=== PATIENT | male | born 1960 | race Caucasian/White ===

== ENCOUNTER 2017-09-11 14:50 | Emergency (ER) | payer OTHER ==
[~2017-09-11] VITALS: Ht 187.9 cm; Wt 107.5 kg
[~2017-09-11 14:50] MED LIST: ALLEGRA180 MG PO; ASPIRIN ADULT L81 M1 PO; AUGMENTIN 875 M1 TA1 PO; CLEOCIN150 MG PO; DAYPRO600 M1 PO; HYDROCODONE BIT1 T11 PO; MEDROL DOSEPAK4 MG PO; METFORMIN1000 MG PO; METFORMIN500 MG PO; MULTIVITAMIN1 CTB PO; PEPCID20 MG PO; Peridex 473 ML473 ML PO; SKELAXIN800 MG PO; TENORMIN25 M1 PO; TENORMIN25 MG PO; VICODIN 5/500 505 MG PO; ZOFRAN ODT4 MG SL; [UNRECOGNIZED DRUG - OTHER] PO; [UNRECOGNIZED DRUG - REMARK]
[2017-09-11 15:33] LABS: BASO % 0.4 % (0.0-1.0); EOS # 0.4 10*3/uL (0.0-0.4); EOS % 4.8 % (1.0-4.0); HEMATOCRIT 44.1 % (42.0-52.0); HEMOGLOBIN 15.6 g/dl (14.0-18.0); LYMPH # 1.8 10*3/uL (1.3-4.4); LYMPH % 22.4 % (27.0-41.0); MEAN CELL VOLUME 91.3 fl (80.0-94.0); MEAN CORPUSCULAR HGB 32.3 pg (27.0-31.0); MEAN CORPUSCULAR HGB CONC 35.4 g/dl (33.0-37.0); MEAN PLATELET VOLUME 10.4 fl (9.6-12.3); MONO # 0.7 10*3/uL (0.1-1.0); MONO % 8.5 % (3.0-9.0); NEUT # 5.1 10*3/uL (2.3-7.9); NEUT % 63.6 % (47.0-73.0); PLATELET COUNT AUTOMATED 185 10*3/uL (130-400); RED BLOOD COUNT 4.83 10*6/uL (4.50-5.90); RED CELL DISTRI WIDTH 12.4 % (0-14.5)
[2017-09-11 15:49] LABS: ALBUMIN 3.6 gm/dl (3.1-4.5); ALKALINE PHOSPHATASE 118 U/L (45-117); BUN 17 mg/dl (7-24); CHLORIDE 101 mmol/L (98-107); CREATININE 1.01 mg/dL (0.70-1.30); LIPASE 141 U/L (73-393); SGOT/AST 14 IU/L (3-35); SGPT/ALT 30 U/L (12-78); SODIUM 136 mmol/L (136-145); TOTAL PROTEIN 7.2 gm/dL (6.4-8.2)
[2017-09-11] MEDS ORDERED: CLARITIN10 MG PO (16:41)
[2017-09-11] MEDS ORDERED: ROBITUSSIN DM 105 ML PO (16:41)
[2017-09-11] MEDS ORDERED: FLONASE ALLERG9.9 ML NAS (16:41)
[2017-09-11] MEDS ORDERED: PREDNISONE10 MG PO (16:41)
== END 2017-09-11 16:48 | disposition home or self-care (01) ==
LOC: ED 14:50
PROVIDERS: Nurse Practitioner Family
DX: J44.1 Chronic obstructive pulmonary disease with (acute) exacerbation (principal); E11.65 Type 2 diabetes mellitus with hyperglycemia; K21.9 Gastro-esophageal reflux disease without esophagitis; I10 Essential (primary) hypertension; F17.200 Nicotine dependence, unspecified, uncomplicated; Z90.49 Acquired absence of other specified parts of digestive tract; Z98.890 Other specified postprocedural states; Z79.82 Long term (current) use of aspirin; Z88.0 Allergy status to penicillin

== ENCOUNTER 2017-11-20 00:27 | Emergency (ER) | payer OTHER ==
[~2017-11-20] VITALS: Ht 187.9 cm; Wt 108.9 kg
[~2017-11-20 00:27] MED LIST changes: +CLARITIN10 MG PO; +FLONASE ALLERG9.9 ML NAS; +PREDNISONE10 MG PO; +ROBITUSSIN DM 105 ML PO
[2017-11-20 01:04] LABS: BASO # 0.1 10*3/uL (0.0-0.1); BASO % 0.6 % (0.0-1.0); EOS # 0.7 10*3/uL (0.0-0.4); EOS % 6.9 % (1.0-4.0); HEMATOCRIT 42.4 % (42.0-52.0); HEMOGLOBIN 14.3 g/dl (14.0-18.0); LYMPH # 2.7 10*3/uL (1.3-4.4); LYMPH % 26.4 % (27.0-41.0); MEAN CELL VOLUME 93.8 fl (80.0-94.0); MEAN CORPUSCULAR HGB 31.6 pg (27.0-31.0); MEAN CORPUSCULAR HGB CONC 33.7 g/dl (33.0-37.0); MONO # 0.8 10*3/uL (0.1-1.0); MONO % 8.3 % (3.0-9.0); NEUT # 5.8 10*3/uL (2.3-7.9); NEUT % 57.3 % (47.0-73.0); PLATELET COUNT AUTOMATED 187 10*3/uL (130-400); RED BLOOD COUNT 4.52 10*6/uL (4.50-5.90); RED CELL DISTRI WIDTH 13.2 % (0-14.5)
[2017-11-20 01:13] LABS: INTERNATIONAL NORM RATIO 1.3 (2.0-3.5)
[2017-11-20 01:20] LABS: ALBUMIN 3.4 gm/dl (3.1-4.5); ALKALINE PHOSPHATASE 110 U/L (45-117); CHLORIDE 105 mmol/L (98-107); CREATININE 0.94 mg/dL (0.70-1.30); LIPASE 149 U/L (73-393); POTASSIUM 3.8 mmol/L (3.5-5.1); SGPT/ALT 23 U/L (12-78); SODIUM 140 mmol/L (136-145); TOTAL PROTEIN 6.7 gm/dL (6.4-8.2)
[2017-11-20 01:34] LABS: BUN 16 mg/dl (7-24); SGOT/AST 13 IU/L (3-35)
[2017-11-20 01:36] LABS: TROPONIN I < 0.015 ng/ml (<0.045)
[2017-11-20] MEDS ORDERED: PROAIR HFA8.5 GM INH (01:41)
[2017-11-20] MEDS ORDERED: TESSALON PERLE100 M1 PO (01:41)
[2017-11-20 02:09] LABS: BILIRUBIN NEGATIVE (NEGATIVE); BLOOD NEGATIVE (NEGATIVE); CLARITY CLEAR (CLEAR); COLOR YELLOW (YELLOW); GLUCOSE NEGATIVE (NEGATIVE); KETONE NEGATIVE (NEGATIVE); LEUKO ESTERASE NEGATIVE (NEGATIVE); NITRITE NEGATIVE (NEGATIVE); UROBILINOGEN 0.2 E.U./dl (0.2-1.0)
[2017-11-20] MEDS ORDERED: ATARAX,VISTARIL50 MG PO (02:12)
[2017-11-20 02:20] LABS: RBC 0-2 rbc/hpf (0-2); WBC 0-2 wbc/hpf (0-5)
== END 2017-11-20 02:31 | disposition home or self-care (01) ==
LOC: ED 00:27
PROVIDERS: Emergency Medicine Emergency Medical Services
DX: J40 Bronchitis, not specified as acute or chronic (principal); B34.9 Viral infection, unspecified; F17.200 Nicotine dependence, unspecified, uncomplicated; E11.65 Type 2 diabetes mellitus with hyperglycemia; I10 Essential (primary) hypertension; K21.9 Gastro-esophageal reflux disease without esophagitis; Z90.49 Acquired absence of other specified parts of digestive tract; Z79.82 Long term (current) use of aspirin; Z79.899 Other long term (current) drug therapy; Z88.0 Allergy status to penicillin

== ENCOUNTER 2018-02-05 02:10 | Emergency (ER) | payer OTHER ==
[~2018-02-05] VITALS: Ht 187.9 cm; Wt 114.3 kg
[~2018-02-05 02:10] MED LIST changes: +ATARAX,VISTARIL50 MG PO; +PROAIR HFA8.5 GM INH; +TESSALON PERLE100 M1 PO
[2018-02-05] MEDS ORDERED: VIBRAMYCIN100 MG PO (02:31)
== END 2018-02-05 02:43 | disposition home or self-care (01) ==
LOC: ED 02:10
DX: J32.9 Chronic sinusitis, unspecified (principal); K21.9 Gastro-esophageal reflux disease without esophagitis; E11.65 Type 2 diabetes mellitus with hyperglycemia; I10 Essential (primary) hypertension; F17.200 Nicotine dependence, unspecified, uncomplicated; Z98.890 Other specified postprocedural states; Z90.49 Acquired absence of other specified parts of digestive tract; Z79.82 Long term (current) use of aspirin; Z88.0 Allergy status to penicillin

== ENCOUNTER 2018-06-01 17:44 | Emergency (ER) | payer OTHER ==
[~2018-06-01] VITALS: Ht 187.9 cm; Wt 108.9 kg
[~2018-06-01 17:44] MED LIST changes: +ADV 100/50 PO; +AMARYL4 MG PO; +BASAG SOL SQ; +COZAAR25 M1 PO; +IBUPROFEN600 MG PO; +NEURONTIN300 MG PO; +SINGULAIR10 M1 PO; +VIBRAMYCIN100 MG PO; +VITAMIN D CAP 500
[2018-06-01] MEDS ORDERED: CLINDAMYCIN HC300 MG PO (18:03)
[2018-06-30] MEDS ORDERED: Ipratropium Brom3 ML INH (02:29)
[2018-06-30] MEDS ORDERED: SYMB80 INH (05:32)
[2018-06-30] MEDS ORDERED: VITAMIN D350000 UNIT PO (05:35)
[2018-06-30] MEDS ORDERED: FIBER500 MG PO (05:36)
[2018-06-30] MEDS ORDERED: XARE15TA PO (10:05)
[2018-07-01] MEDS ORDERED: XARE20MG PO (08:59)
== END 2018-06-01 18:47 | disposition home or self-care (01) ==
LOC: ED 17:44
DX: K02.63 Dental caries on smooth surface penetrating into pulp (principal); J44.9 Chronic obstructive pulmonary disease, unspecified; E11.9 Type 2 diabetes mellitus without complications; K21.9 Gastro-esophageal reflux disease without esophagitis; I10 Essential (primary) hypertension; F17.200 Nicotine dependence, unspecified, uncomplicated; Z88.0 Allergy status to penicillin; Z79.84 Long term (current) use of oral hypoglycemic drugs; Z79.899 Other long term (current) drug therapy; Z79.4 Long term (current) use of insulin; Z90.49 Acquired absence of other specified parts of digestive tract

== ENCOUNTER 2018-06-03 00:39 | Emergency (ER) | payer OTHER ==
[~2018-06-03] VITALS: Ht 187.9 cm; Wt 113.4 kg
[~2018-06-03 00:39] MED LIST changes: +CLINDAMYCIN HC300 MG PO
[2018-06-03 02:04] LABS: BASO # 0.1 10*3/uL (0.0-0.1); BASO % 0.6 % (0.0-1.0); EOS # 0.3 10*3/uL (0.0-0.4); EOS % 4.1 % (1.0-4.0); HEMATOCRIT 42.8 % (42.0-52.0); HEMOGLOBIN 14.6 g/dl (14.0-18.0); LYMPH # 2.5 10*3/uL (1.3-4.4); LYMPH % 29.9 % (27.0-41.0); MEAN CELL VOLUME 93.9 fl (80.0-94.0); MEAN CORPUSCULAR HGB CONC 34.1 g/dl (33.0-37.0); MEAN PLATELET VOLUME 9.6 fl (9.6-12.3); MONO # 0.6 10*3/uL (0.1-1.0); MONO % 6.8 % (3.0-9.0); NEUT # 4.8 10*3/uL (2.3-7.9); NEUT % 58.4 % (47.0-73.0); PLATELET COUNT AUTOMATED 212 10*3/uL (130-400); RED BLOOD COUNT 4.56 10*6/uL (4.50-5.90); RED CELL DISTRI WIDTH 13.1 % (0-14.5); WHITE BLOOD COUNT 8.2 10*3/uL (4.8-10.8)
[2018-06-03 02:13] LABS: INTERNATIONAL NORM RATIO 1.7 (2.0-3.5)
[2018-06-03 02:21] LABS: BILIRUBIN NEGATIVE (NEGATIVE); BLOOD NEGATIVE (NEGATIVE); CLARITY CLEAR (CLEAR); COLOR YELLOW (YELLOW); GLUCOSE NEGATIVE (NEGATIVE); KETONE NEGATIVE (NEGATIVE); LEUKO ESTERASE NEGATIVE (NEGATIVE); NITRITE NEGATIVE (NEGATIVE); SPECIFIC GRAVITY 1.025 (1.005-1.030); UROBILINOGEN 0.2 E.U./dl (0.2-1.0)
[2018-06-03 02:24] LABS: ALBUMIN 3.3 gm/dl (3.1-4.5); ALKALINE PHOSPHATASE 119 U/L (45-117); BUN 26 mg/dl (7-24); CHLORIDE 106 mmol/L (98-107); CREATININE 0.99 mg/dL (0.70-1.30); POTASSIUM 3.9 mmol/L (3.5-5.1); SGOT/AST 20 IU/L (3-35); SGPT/ALT 41 U/L (12-78); SODIUM 138 mmol/L (136-145); TOTAL PROTEIN 6.7 gm/dL (6.4-8.2)
[2018-06-03 02:27] LABS: TROPONIN I < 0.015 ng/ml (<0.045)
[2018-06-03 02:28] LABS: WBC 0-2 wbc/hpf (0-5)
[2018-06-30] MEDS ORDERED: Ipratropium Brom3 ML INH (02:29)
[2018-06-30] MEDS ORDERED: SYMB80 INH (05:32)
[2018-06-30] MEDS ORDERED: VITAMIN D350000 UNIT PO (05:35)
[2018-06-30] MEDS ORDERED: FIBER500 MG PO (05:36)
[2018-06-30] MEDS ORDERED: XARE15TA PO (10:05)
[2018-07-01] MEDS ORDERED: XARE20MG PO (08:59)
== END 2018-06-03 03:29 | disposition home or self-care (01) ==
LOC: ED 00:39
PROVIDERS: Emergency Medicine Emergency Medical Services
DX: M79.10 Myalgia, unspecified site (principal); S02 Fracture of skull and facial bones; J44.9 Chronic obstructive pulmonary disease, unspecified; K21.9 Gastro-esophageal reflux disease without esophagitis; I10 Essential (primary) hypertension; E11.9 Type 2 diabetes mellitus without complications; Z87.891 Personal history of nicotine dependence; Z88.0 Allergy status to penicillin; Z79.899 Other long term (current) drug therapy; Z79.4 Long term (current) use of insulin; X58.XXXD Exposure to other specified factors, subsequent encounter

== ENCOUNTER 2018-07-20 14:32 | Emergency (ER) | payer OTHER ==
[~2018-07-20] VITALS: Wt 117.5 kg
--- NOTE | ~2018-07-20 | EKG ---
[place], [place] ELECTROCARDIOGRAM REPORT NAME: SCARLET CUETO UNIT #: [id number] ROOM: DOCTOR: FARTUN DRAFT REPORT BIRTHDATE: [birth year] [facility] Test Date: 2018-07-20 Test Time: 15:30:40 Pat Name: SCARLET CUETO Department: Room: Gender: Pre Press Proofer: : 1960 Requested By: MALAIKA SANTIZO Order Number: [id number] Reading MD: Karen Patterson MD Measurements Intervals [place] Rate: 64 P: 12 [place]: 146 QRS: 16 QRSD: 87 T: 57 QT: 492 QTc: 508 Interpretive Statements Sinus rhythm Borderline T wave abnormalities Prolonged QT interval Baseline wander in lead(s) V4 Compared to ECG 06/30/2018 13:19:47 T-wave abnormality now present Prolonged QT interval now present Electronically Signed On 07-24-2018 8:46:13 PST by Karen Patterson MD CM:EKGRPT:ELECTROCARDIOGRAM REPORT [id number] MALAIKA MEZA DRAFT REPORT MALAIKA SANTIZO DO
[~2018-07-20 14:32] MED LIST changes: +FIBER500 MG PO; +Ipratropium Brom3 ML INH; +SYMB80 INH; +VITAMIN D350000 UNIT PO; +XARE15TA PO; +XARE20MG PO
[2018-07-20 15:44] LABS: BILIRUBIN NEGATIVE (NEGATIVE); BLOOD NEGATIVE (NEGATIVE); CLARITY CLEAR (CLEAR); COLOR YELLOW (YELLOW); GLUCOSE NEGATIVE (NEGATIVE); KETONE NEGATIVE (NEGATIVE); LEUKO ESTERASE NEGATIVE (NEGATIVE); NITRITE NEGATIVE (NEGATIVE); PH 6.5 (5.0-9.0); SPECIFIC GRAVITY 1.015 (1.005-1.030); UROBILINOGEN 0.2 E.U./dl (0.2-1.0)
[2018-07-20 15:50] LABS: WBC 0-2 wbc/hpf (0-5)
[2018-07-20 15:55] LABS: URINE AMPHETAMINES < 1000 (1000ng/ml); URINE BARBITURATES < 200 (200ng/ml); URINE BENZODIAZEPINES < 200 (200ng/ml); URINE CANNABINOIDS (THC) < 50 (50ng/ml); URINE COCAINE < 300 (300ng/ml); URINE METHADONE < 300 (300ng/ml); URINE OPIATES < 300 (300ng/ml)
[2018-07-20 15:56] LABS: URINE PHENCYCLIDINE < 25 (25ng/ml)
[2018-07-20 16:24] LABS: ACT PARTIAL THROMBO TIME 30.2 SECONDS (20.8-31.5); INTERNATIONAL NORM RATIO 1.6 (2.0-3.5)
[2018-07-20 16:29] LABS: HEMATOCRIT 43.7 % (42.0-52.0); HEMOGLOBIN 15.5 g/dl (14.0-18.0); MEAN CELL VOLUME 91.6 fl (80.0-94.0); MEAN CORPUSCULAR HGB 32.5 pg (27.0-31.0); MEAN CORPUSCULAR HGB CONC 35.5 g/dl (33.0-37.0); MEAN PLATELET VOLUME 9.8 fl (9.6-12.3); NUCLEATED RED BLOOD CELL 0.1 10*3/uL (0.0-0.0); NUCLEATED RED BLOOD CELL 1.2 % (0.0-0.0); PLATELET COUNT AUTOMATED 204 10*3/uL (130-400); RED BLOOD COUNT 4.77 10*6/uL (4.50-5.90); RED CELL DISTRI WIDTH 12.8 % (0-14.5); WHITE BLOOD COUNT 7.4 10*3/uL (4.8-10.8)
[2018-07-20 16:33] LABS: ALBUMIN 3.4 gm/dl (3.1-4.5); ALKALINE PHOSPHATASE 108 U/L (45-117); BUN 21 mg/dl (7-24); CHLORIDE 104 mmol/L (98-107); CREATININE 1.07 mg/dL (0.70-1.30); ETHYL ALCOHOL < 3.0 mg/dl (<3); LIPASE 136 U/L (73-393); POTASSIUM 4.4 mmol/L (3.5-5.1); SGOT/AST 18 IU/L (3-35); SGPT/ALT 45 U/L (12-78); SODIUM 139 mmol/L (136-145); TOTAL PROTEIN 7.5 gm/dL (6.4-8.2); TROPONIN I < 0.015 ng/ml (<0.045)
[2018-07-20 16:34] LABS: ACETAMINOPHEN (TYLENOL) < 5.0 ug/ml (10-30)
== END 2018-07-20 21:28 | disposition home or self-care (01) ==
LOC: ED 14:32
PROVIDERS: Emergency Medicine
DX: F32.9 Major depressive disorder, single episode, unspecified (principal); J44.9 Chronic obstructive pulmonary disease, unspecified; E11.9 Type 2 diabetes mellitus without complications; K21.9 Gastro-esophageal reflux disease without esophagitis; I10 Essential (primary) hypertension; F17.200 Nicotine dependence, unspecified, uncomplicated; Z88.0 Allergy status to penicillin; Z79.84 Long term (current) use of oral hypoglycemic drugs; Z79.4 Long term (current) use of insulin; Z79.899 Other long term (current) drug therapy; Z90.49 Acquired absence of other specified parts of digestive tract

== ENCOUNTER 2018-09-14 17:51 | Emergency (ER) | payer OTHER ==
[~2018-09-14] VITALS: Ht 187.9 cm; Wt 106.6 kg
--- NOTE | ~2018-09-14 | EKG ---
[place], [place] ELECTROCARDIOGRAM REPORT NAME: SCARLET CUETO UNIT #: [id number] ROOM: DOCTOR: EPIPHANY DRAFT REPORT BIRTHDATE: [birth year] [facility] Test Date: 2018-09-14 Test Time: 18:33:53 Pat Name: SCARLET CUETO Department: Room: Gender: Pile Fab[employer] Knitter: Onelia Cervantes : 1960 Requested By: SOO COLUNGA PA-C Order Number: [id number] Reading MD: Bautista Morales MD Measurements Intervals [place] Rate: 67 P: 13 [place]: 148 QRS: 11 QRSD: 92 T: 21 QT: 365 QTc: 386 Interpretive Statements Sinus rhythm Borderline T wave abnormalities Baseline wander in lead(s) V5 Compared to ECG 07/20/2018 15:30:40 Prolonged QT interval no longer present T-wave abnormality still present Electronically Signed On 09-15-2018 12:16:30 PST by Bautista Morales MD CM:EKGRPT:ELECTROCARDIOGRAM REPORT [id number] SOO COLUNGA PA-C EPIPHANY DRAFT REPORT SOO COLUNGA PA-C
[2018-09-14 18:44] LABS: BASO % 0.4 % (0.0-1.0); EOS # 0.2 10*3/uL (0.0-0.4); EOS % 2.3 % (1.0-4.0); HEMATOCRIT 44.7 % (42.0-52.0); HEMOGLOBIN 15.2 g/dl (14.0-18.0); LYMPH % 26.1 % (27.0-41.0); MEAN CELL VOLUME 92.9 fl (80.0-94.0); MEAN CORPUSCULAR HGB 31.6 pg (27.0-31.0); MEAN PLATELET VOLUME 9.8 fl (9.6-12.3); MONO # 0.6 10*3/uL (0.1-1.0); MONO % 7.4 % (3.0-9.0); NEUT # 4.9 10*3/uL (2.3-7.9); NEUT % 63.5 % (47.0-73.0); PLATELET COUNT AUTOMATED 180 10*3/uL (130-400); RED BLOOD COUNT 4.81 10*6/uL (4.50-5.90); RED CELL DISTRI WIDTH 12.6 % (0-14.5); WHITE BLOOD COUNT 7.7 10*3/uL (4.8-10.8)
[2018-09-14 18:54] LABS: ACT PARTIAL THROMBO TIME 24.7 SECONDS (20.8-31.5); INTERNATIONAL NORM RATIO 1.4 (2.0-3.5)
[2018-09-14 19:37] LABS: ALBUMIN 3.2 gm/dl (3.1-4.5); ALKALINE PHOSPHATASE 113 U/L (45-117); BUN 23 mg/dl (7-24); CHLORIDE 106 mmol/L (98-107); CREATININE 0.95 mg/dL (0.70-1.30); LIPASE 122 U/L (73-393); POTASSIUM 4.1 mmol/L (3.5-5.1); SGOT/AST 16 IU/L (3-35); SGPT/ALT 43 U/L (12-78); SODIUM 141 mmol/L (136-145); TOTAL PROTEIN 6.9 gm/dL (6.4-8.2)
[2018-09-14 19:39] LABS: TROPONIN I < 0.015 ng/ml (<0.045)
[2018-09-14] MEDS ORDERED: VIBRAMYCIN100 MG PO (20:58)
== END 2018-09-14 21:20 | disposition home or self-care (01) ==
LOC: ED 17:51
PROVIDERS: Physician Assistant
DX: J32.0 Chronic maxillary sinusitis (principal); R42 Dizziness and giddiness; R10.9 Unspecified abdominal pain; F17.200 Nicotine dependence, unspecified, uncomplicated; Z88.0 Allergy status to penicillin; Z79.899 Other long term (current) drug therapy

== ENCOUNTER 2018-12-01 07:38 | Emergency (ER) | payer OTHER ==
[~2018-12-01] VITALS: Ht 187.9 cm; Wt 116.1 kg
[2018-12-01] MEDS ORDERED: LEVOFLOXACIN500 MG PO (10:13)
[2018-12-01] MEDS ORDERED: CLINDAMYCIN HC300 MG PO (10:13)
== END 2018-12-01 10:39 | disposition home or self-care (01) ==
LOC: ED 07:38
DX: J32.3 Chronic sphenoidal sinusitis (principal); J44.9 Chronic obstructive pulmonary disease, unspecified; E11.9 Type 2 diabetes mellitus without complications; K21.9 Gastro-esophageal reflux disease without esophagitis; I10 Essential (primary) hypertension; F17.200 Nicotine dependence, unspecified, uncomplicated; Z88.0 Allergy status to penicillin; Z79.84 Long term (current) use of oral hypoglycemic drugs; Z79.899 Other long term (current) drug therapy; Z90.49 Acquired absence of other specified parts of digestive tract

== ENCOUNTER 2019-05-08 08:56 | Inpatient (IN) | payer OTHER ==
[2019-05-08] VITALS (7 sets, daily range): BP systolic 123–137; BP diastolic 72–91
[~2019-05-08] VITALS: Ht 187.9 cm; Wt 117.9 kg
[~2019-05-08 08:56] MED LIST changes: +LEVOFLOXACIN500 MG PO
[2019-05-08 09:11] LABS: BASO # 0.1 10*3/uL (0.0-0.1); BASO % 0.6 % (0.0-1.0); EOS # 0.2 10*3/uL (0.0-0.4); EOS % 1.8 % (1.0-4.0); HEMATOCRIT 46.4 % (42.0-52.0); HEMOGLOBIN 16.4 g/dl (14.0-18.0); LYMPH # 2.6 10*3/uL (1.3-4.4); LYMPH % 23.5 % (27.0-41.0); MEAN CELL VOLUME 95.5 fl (80.0-94.0); MEAN CORPUSCULAR HGB 33.7 pg (27.0-31.0); MEAN CORPUSCULAR HGB CONC 35.3 g/dl (33.0-37.0); MEAN PLATELET VOLUME 10.5 fl (9.6-12.3); MONO # 0.7 10*3/uL (0.1-1.0); MONO % 6.4 % (3.0-9.0); NEUT # 7.5 10*3/uL (2.3-7.9); NEUT % 67.3 % (47.0-73.0); PLATELET COUNT AUTOMATED 247 10*3/uL (130-400); RED BLOOD COUNT 4.86 10*6/uL (4.50-5.90); RED CELL DISTRI WIDTH 13.1 % (0-14.5); WHITE BLOOD COUNT 11.2 10*3/uL (4.8-10.8)
[2019-05-08 09:39] LABS: ACT PARTIAL THROMBO TIME 25.8 SECONDS (20.0-32.1); INTERNATIONAL NORM RATIO 1.2 (2.0-3.5)
[2019-05-08 09:44] LABS: ALBUMIN 3.5 gm/dl (3.1-4.5); ALKALINE PHOSPHATASE 112 U/L (45-117); BUN 16 mg/dl (7-24); CHLORIDE 100 mmol/L (98-107); CREATININE 1.07 mg/dL (0.70-1.30); POTASSIUM 4.5 mmol/L (3.5-5.1); SGOT/AST 18 IU/L (3-35); SGPT/ALT 43 U/L (12-78); SODIUM 134 mmol/L (136-145); TOTAL PROTEIN 7.4 gm/dL (6.4-8.2)
[2019-05-08 09:46] LABS: TROPONIN I < 0.015 ng/ml (<0.045)
--- NOTE | 2019-05-08 11:59 | NUR ---
A 58, admitted to , under the services of DUDLEY Leon MD with a diagnosis of MILD CHF. Chief complaint is SOB. Patient arrived via bed from ER. Monitor applied. Initial assessment completed. Vital signs taken and recorded. DUDLEY LEON MD notified of admission to the unit. Orders received. See assessment for past medical history, medications and allergies. Patient and/or family oriented to unit. [facility] visitation policy reviewed. Clothing/patient valuable form completed. ANAMARIA GONSALEZ
[2019-05-08] MEDS ORDERED: XARE20MG PO (12:22)
[2019-05-08] MEDS ORDERED: MIRTAZAPINE15 M2 PO (12:23)
--- NOTE | 2019-05-08 14:03 | NUR ---
DR. AGUILAR NOTIFIED OF CONSULT RE: CHF
--- NOTE | 2019-05-08 15:08 | NUR ---
MEDICATED WITH PRN PO TYLENOL FOR SINUS PRESSURE AND LOWER LEFT TOOTHACHE PAIN.
--- NOTE | 2019-05-08 16:00 | NUR ---
PRN PO TYLENOL EFFECTIVE, PER PATIENT.
--- NOTE | 2019-05-08 16:53 | NUR ---
DR. AGUILAR CALLED IN, HE WILL SEE THE PATIENT FRIDAY.
[2019-05-09] VITALS: BP 120/67
--- NOTE | 2019-05-09 01:03 | NUR ---
PATIENT SLEEPING QUIETLY IN BED. NO ACUTE DISTRESS NOTED. CALL LIGHT WITHIN REACH.
--- NOTE | 2019-05-09 03:53 | NUR ---
24 HR chart check completed.
--- NOTE | 2019-05-09 08:10 | NUR ---
MEDICATED WITH PRN PO TYLENOL FOR C/O BILATERAL HIPS/KNEES/SHOULDERS PAIN.
[2019-05-09] MEDS ORDERED: COZAAR50 M1 PO (08:14)
[2019-05-09 08:33] VITALS: BP 120/80
--- NOTE | 2019-05-09 10:17 | NUR ---
PRN PO TYLENOL WAS EFFECTIVE FOR ACHING, BUT NOW C/O LEGS CRAMPING.
--- NOTE | 2019-05-09 10:19 | NUR ---
DR. PRITCHARD IS CONSULTED; IS ENTERING ORDERS FOR THE PATIENT.
--- NOTE | 2019-05-09 11:31 | NUR ---
DR. CABRERA'S ANSWERING SERVICE NOTIFIED OF CONSULT RE: CHF.
[2019-05-09 12:00] VITALS: BP 121/76
[2019-05-09 16:00] VITALS: BP 120/65
[2019-05-09 20:00] VITALS: BP 110/70
--- NOTE | 2019-05-09 21:42 | NUR ---
PATIENTS HEART RATE RANGING FROM 90-110'S. HAS BEEN 60'S-70'S. ASKED PATIENT IF HE WAS HAVING CHEST PAIN OR SHORTNESS OF BREATH. HE STATED THAT HE FEELS GREAT. HE STATED HE ALSO JUST HAD A LARGE CUP OF COFFEE. EXPLAINED TO PATIENT THAT THEY MAY BE WHAT HAS CAUSED HIS HEART RATE TO INCREASE. HE STATED HE DOESN'T EVEN FEEL THAT IT'S HIGH. WILL CONTINUE TO MONITOR
[2019-05-10] VITALS: BP 110/63
--- NOTE | 2019-05-10 06:32 | NUR ---
PRN CEPACOL GIVEN FOR PT COMPLAINTS OF SORE THROAT
[2019-05-10 08:00] VITALS: BP 122/64
[2019-05-10] MEDS ORDERED: AMARYL4 MG PO (08:27)
[2019-05-10] MEDS ORDERED: BASAG SOL SQ (08:29)
[2019-05-10] MEDS ORDERED: XARE20MG PO (08:29)
--- NOTE | 2019-05-10 11:42 | NUR ---
IV REMOVED & HEART MONITOR COLLECTED FOR DISCHARGE.
--- NOTE | 2019-05-10 12:06 | NUR ---
Discharge instructions reviewed with patient/family. Patient receptive and verbalizes understanding. Follow-up care arranged. Written instructions given to patient/family. FARRAH WEBSTER
== END 2019-05-10 12:06 | disposition home or self-care (01) | DRG 202 ==
LOC: ED 08:56 → 4E 11:26 → EDHOLD 11:26 → 4E 11:43
PROVIDERS: Emergency Medicine; ADMIT Internal Medicine
DX: J20.9 Acute bronchitis, unspecified (principal); J98.11 Atelectasis; D68.59 Other primary thrombophilia; J44.0 Chronic obstructive pulmonary disease with (acute) lower respiratory infection; I10 Essential (primary) hypertension; F32.9 Major depressive disorder, single episode, unspecified; K21.9 Gastro-esophageal reflux disease without esophagitis; E66.8 Other obesity; E11.65 Type 2 diabetes mellitus with hyperglycemia; J45.20 Mild intermittent asthma, uncomplicated; Z86.711 Personal history of pulmonary embolism; Z91.19 Patient's noncompliance with other medical treatment and regimen; Z79.01 Long term (current) use of anticoagulants; Z88.0 Allergy status to penicillin; Z90.49 Acquired absence of other specified parts of digestive tract; Z87.891 Personal history of nicotine dependence; Z83.3 Family history of diabetes mellitus; Z82.49 Family history of ischemic heart disease and other diseases of the circulatory system; Z84.89 Family history of other specified conditions; Z68.33 Body mass index [BMI] 33.0-33.9, adult; R60.9 Edema, unspecified

== ENCOUNTER 2019-05-28 19:13 | Emergency (ER) | payer OTHER ==
[~2019-05-28] VITALS: Ht 187.9 cm; Wt 114.8 kg
[~2019-05-28 19:13] MED LIST changes: +COZAAR50 M1 PO; +MIRTAZAPINE15 M2 PO
[2019-05-28 20:48] LABS: BASO % 0.4 % (0.0-1.0); EOS # 0.2 10*3/uL (0.0-0.4); EOS % 2.1 % (1.0-4.0); HEMATOCRIT 43.7 % (42.0-52.0); HEMOGLOBIN 15.1 g/dl (14.0-18.0); LYMPH # 2.1 10*3/uL (1.3-4.4); LYMPH % 23.5 % (27.0-41.0); MEAN CELL VOLUME 97.3 fl (80.0-94.0); MEAN CORPUSCULAR HGB 33.6 pg (27.0-31.0); MEAN CORPUSCULAR HGB CONC 34.6 g/dl (33.0-37.0); MONO # 0.7 10*3/uL (0.1-1.0); MONO % 7.9 % (3.0-9.0); NEUT # 5.9 10*3/uL (2.3-7.9); NEUT % 65.4 % (47.0-73.0); PLATELET COUNT AUTOMATED 269 10*3/uL (130-400); RED BLOOD COUNT 4.49 10*6/uL (4.50-5.90); RED CELL DISTRI WIDTH 13.4 % (0-14.5)
[2019-05-28 21:25] LABS: INTERNATIONAL NORM RATIO 1.4 (2.0-3.5)
[2019-05-28 21:29] LABS: ALBUMIN 3.1 gm/dl (3.1-4.5); ALKALINE PHOSPHATASE 125 U/L (45-117); BUN 16 mg/dl (7-24); CHLORIDE 104 mmol/L (98-107); CREATININE 0.99 mg/dL (0.70-1.30); POTASSIUM 4.1 mmol/L (3.5-5.1); SGOT/AST 13 IU/L (3-35); SGPT/ALT 44 U/L (12-78); SODIUM 137 mmol/L (136-145); TOTAL PROTEIN 7.2 gm/dL (6.4-8.2); TROPONIN I < 0.015 ng/ml (<0.045)
[2019-05-28 22:27] LABS: BILIRUBIN NEGATIVE (NEGATIVE); BLOOD NEGATIVE (NEGATIVE); CLARITY CLEAR (CLEAR); COLOR YELLOW (YELLOW); GLUCOSE 3+ (NEGATIVE); KETONE NEGATIVE (NEGATIVE); LEUKO ESTERASE NEGATIVE (NEGATIVE); NITRITE NEGATIVE (NEGATIVE); PH 5.5 (5.0-9.0); UROBILINOGEN 0.2 E.U./dl (0.2-1.0)
[2019-05-28 22:44] LABS: YEAST TRACE
== END 2019-05-29 00:28 | disposition home or self-care (01) ==
LOC: ED 19:13
PROVIDERS: Physician Assistant
DX: G44.209 Tension-type headache, unspecified, not intractable (principal); R42 Dizziness and giddiness; F17.200 Nicotine dependence, unspecified, uncomplicated; Z90.49 Acquired absence of other specified parts of digestive tract; Z79.899 Other long term (current) drug therapy; Z79.4 Long term (current) use of insulin; Z88.0 Allergy status to penicillin

== ENCOUNTER 2019-05-31 14:33 | Emergency (ER) | payer OTHER ==
[~2019-05-31] VITALS: Ht 187.9 cm; Wt 113.4 kg
[2019-05-31 15:12] LABS: BASO % 0.3 % (0.0-1.0); EOS # 0.2 10*3/uL (0.0-0.4); EOS % 1.6 % (1.0-4.0); HEMATOCRIT 42.7 % (42.0-52.0); HEMOGLOBIN 14.2 g/dl (14.0-18.0); LYMPH # 2.3 10*3/uL (1.3-4.4); LYMPH % 20.5 % (27.0-41.0); MEAN CELL VOLUME 97.7 fl (80.0-94.0); MEAN CORPUSCULAR HGB 32.5 pg (27.0-31.0); MEAN CORPUSCULAR HGB CONC 33.3 g/dl (33.0-37.0); MEAN PLATELET VOLUME 9.6 fl (9.6-12.3); MONO # 1.1 10*3/uL (0.1-1.0); MONO % 9.3 % (3.0-9.0); NEUT # 7.7 10*3/uL (2.3-7.9); NEUT % 67.9 % (47.0-73.0); PLATELET COUNT AUTOMATED 210 10*3/uL (130-400); RED BLOOD COUNT 4.37 10*6/uL (4.50-5.90); WHITE BLOOD COUNT 11.3 10*3/uL (4.8-10.8)
[2019-05-31 15:22] LABS: ACT PARTIAL THROMBO TIME 25.3 SECONDS (20.0-32.1); INTERNATIONAL NORM RATIO 1.2 (2.0-3.5)
[2019-05-31 15:30] LABS: ALBUMIN 2.9 gm/dl (3.1-4.5); ALKALINE PHOSPHATASE 117 U/L (45-117); BUN 16 mg/dl (7-24); CHLORIDE 104 mmol/L (98-107); CREATININE 1.09 mg/dL (0.70-1.30); POTASSIUM 3.9 mmol/L (3.5-5.1); SGOT/AST 16 IU/L (3-35); SGPT/ALT 37 U/L (12-78); SODIUM 136 mmol/L (136-145); TOTAL PROTEIN 6.8 gm/dL (6.4-8.2)
[2019-05-31 15:32] LABS: TROPONIN I < 0.015 ng/ml (<0.045)
== END 2019-05-31 17:43 | disposition home or self-care (01) ==
LOC: ED 14:33
PROVIDERS: Physician Assistant
DX: R51 Headache (principal); R42 Dizziness and giddiness; R79.1 Abnormal coagulation profile; Z87.891 Personal history of nicotine dependence; Z88.0 Allergy status to penicillin; Z88.6 Allergy status to analgesic agent; Z79.899 Other long term (current) drug therapy; Z90.49 Acquired absence of other specified parts of digestive tract

== ENCOUNTER 2019-06-30 16:26 | Emergency (ER) | payer OTHER ==
[~2019-06-30] VITALS: Ht 187.9 cm; Wt 114.8 kg
[2019-06-30 17:09] LABS: BASO # 0.1 10*3/uL (0.0-0.1); BASO % 0.6 % (0.0-1.0); EOS # 0.2 10*3/uL (0.0-0.4); HEMATOCRIT 45.3 % (42.0-52.0); HEMOGLOBIN 15.2 g/dl (14.0-18.0); LYMPH # 1.9 10*3/uL (1.3-4.4); LYMPH % 24.3 % (27.0-41.0); MEAN CELL VOLUME 96.8 fl (80.0-94.0); MEAN CORPUSCULAR HGB 32.5 pg (27.0-31.0); MEAN CORPUSCULAR HGB CONC 33.6 g/dl (33.0-37.0); MEAN PLATELET VOLUME 9.9 fl (9.6-12.3); MONO # 0.6 10*3/uL (0.1-1.0); MONO % 8.1 % (3.0-9.0); NEUT # 4.9 10*3/uL (2.3-7.9); NEUT % 63.2 % (47.0-73.0); PLATELET COUNT AUTOMATED 231 10*3/uL (130-400); RED BLOOD COUNT 4.68 10*6/uL (4.50-5.90); RED CELL DISTRI WIDTH 12.6 % (0-14.5); WHITE BLOOD COUNT 7.8 10*3/uL (4.8-10.8)
[2019-06-30 17:25] LABS: ALBUMIN 3.2 gm/dl (3.1-4.5); ALKALINE PHOSPHATASE 130 U/L (45-117); BUN 15 mg/dl (7-24); CHLORIDE 105 mmol/L (98-107); CREATININE 1.05 mg/dL (0.70-1.30); POTASSIUM 4.3 mmol/L (3.5-5.1); SGOT/AST 20 IU/L (3-35); SGPT/ALT 46 U/L (12-78); SODIUM 137 mmol/L (136-145); TOTAL PROTEIN 7.1 gm/dL (6.4-8.2)
== END 2019-06-30 18:13 | disposition home or self-care (01) ==
LOC: ED 16:26
PROVIDERS: Emergency Medicine
DX: F41.9 Anxiety disorder, unspecified (principal); E11.9 Type 2 diabetes mellitus without complications; F32.9 Major depressive disorder, single episode, unspecified; K21.9 Gastro-esophageal reflux disease without esophagitis; I10 Essential (primary) hypertension; J44.9 Chronic obstructive pulmonary disease, unspecified; F17.200 Nicotine dependence, unspecified, uncomplicated; Z79.899 Other long term (current) drug therapy; Z88.0 Allergy status to penicillin; Z88.6 Allergy status to analgesic agent

== ENCOUNTER 2019-08-19 14:14 | Emergency (ER) | payer OTHER ==
[~2019-08-19] VITALS: Ht 187.9 cm; Wt 122.9 kg
[2019-08-19 15:07] LABS: BASO # 0.1 10*3/uL (0.0-0.1); BASO % 0.6 % (0.0-1.0); EOS # 0.3 10*3/uL (0.0-0.4); HEMATOCRIT 45.7 % (42.0-52.0); HEMOGLOBIN 15.1 g/dl (14.0-18.0); LYMPH % 25.2 % (27.0-41.0); MEAN CELL VOLUME 96.4 fl (80.0-94.0); MEAN CORPUSCULAR HGB 31.9 pg (27.0-31.0); MEAN PLATELET VOLUME 10.1 fl (9.6-12.3); MONO # 0.7 10*3/uL (0.1-1.0); NEUT # 4.9 10*3/uL (2.3-7.9); NEUT % 60.6 % (47.0-73.0); PLATELET COUNT AUTOMATED 219 10*3/uL (130-400); RED BLOOD COUNT 4.74 10*6/uL (4.50-5.90); RED CELL DISTRI WIDTH 12.6 % (0-14.5); WHITE BLOOD COUNT 8.1 10*3/uL (4.8-10.8)
[2019-08-19 15:24] LABS: ACT PARTIAL THROMBO TIME 31.8 SECONDS (20.0-32.1); INTERNATIONAL NORM RATIO 1.5 (2.0-3.5)
[2019-08-19 15:25] LABS: ALBUMIN 3.1 gm/dl (3.1-4.5); ALKALINE PHOSPHATASE 128 U/L (45-117); BUN 18 mg/dl (7-24); CHLORIDE 108 mmol/L (98-107); CREATININE 0.88 mg/dL (0.70-1.30); LIPASE 93 U/L (73-393); POTASSIUM 3.9 mmol/L (3.5-5.1); SGOT/AST 15 IU/L (3-35); SGPT/ALT 39 U/L (12-78); SODIUM 139 mmol/L (136-145); TOTAL PROTEIN 6.8 gm/dL (6.4-8.2)
[2019-08-19 15:27] LABS: TROPONIN I < 0.015 ng/ml (<0.045)
[2019-08-19] MEDS ORDERED: ZOFRAN4 MG PO ×2 (16:50→17:02)
[2019-08-19] MEDS ORDERED: Meclizine25 MG PO ×2 (16:50→17:02)
== END 2019-08-19 17:14 | disposition home or self-care (01) ==
LOC: ED 14:14
PROVIDERS: Nurse Practitioner Family
DX: R42 Dizziness and giddiness (principal); R11.0 Nausea; R51 Headache; E11.9 Type 2 diabetes mellitus without complications; J44.9 Chronic obstructive pulmonary disease, unspecified; K21.9 Gastro-esophageal reflux disease without esophagitis; I10 Essential (primary) hypertension; R79.1 Abnormal coagulation profile; F17.200 Nicotine dependence, unspecified, uncomplicated; Z88.0 Allergy status to penicillin; Z88.6 Allergy status to analgesic agent; Z79.899 Other long term (current) drug therapy

== ENCOUNTER 2019-09-29 19:42 | Emergency (ER) | payer OTHER ==
[~2019-09-29] VITALS: Ht 182.8 cm; Wt 125.6 kg
[~2019-09-29 19:42] MED LIST changes: +Meclizine25 MG PO; +ZOFRAN4 MG PO
[2019-09-29 20:22] LABS: BASO % 0.5 % (0.0-1.0); EOS # 0.2 10*3/uL (0.0-0.4); EOS % 3.1 % (1.0-4.0); HEMATOCRIT 45.7 % (42.0-52.0); HEMOGLOBIN 15.1 g/dl (14.0-18.0); LYMPH # 1.8 10*3/uL (1.3-4.4); LYMPH % 24.1 % (27.0-41.0); MEAN CELL VOLUME 95.8 fl (80.0-94.0); MEAN CORPUSCULAR HGB 31.7 pg (27.0-31.0); MONO # 0.5 10*3/uL (0.1-1.0); MONO % 6.9 % (3.0-9.0); NEUT # 4.8 10*3/uL (2.3-7.9); PLATELET COUNT AUTOMATED 213 10*3/uL (130-400); RED BLOOD COUNT 4.77 10*6/uL (4.50-5.90); RED CELL DISTRI WIDTH 12.7 % (0-14.5); WHITE BLOOD COUNT 7.4 10*3/uL (4.8-10.8)
[2019-09-29 20:43] LABS: ACT PARTIAL THROMBO TIME 29.3 SECONDS (20.0-32.1); INTERNATIONAL NORM RATIO 1.4 (2.0-3.5)
[2019-09-29 20:45] LABS: ALBUMIN 3.4 gm/dl (3.1-4.5); ALKALINE PHOSPHATASE 113 U/L (45-117); BUN 16 mg/dl (7-24); CHLORIDE 104 mmol/L (98-107); CREATININE 1.09 mg/dL (0.70-1.30); PHOSPHOROUS 2.5 mg/dL (2.5-4.9); SGOT/AST 18 IU/L (3-35); SGPT/ALT 35 U/L (12-78); SODIUM 137 mmol/L (136-145); TOTAL PROTEIN 7.1 gm/dL (6.4-8.2)
[2019-09-29 20:46] LABS: TROPONIN I < 0.015 ng/ml (<0.045)
== END 2019-09-30 00:04 | disposition left against medical advice (07) ==
LOC: ED 19:42
PROVIDERS: Internal Medicine
DX: K59.00 Constipation, unspecified (principal); R42 Dizziness and giddiness; R06.02 Shortness of breath; J44.9 Chronic obstructive pulmonary disease, unspecified; K21.9 Gastro-esophageal reflux disease without esophagitis; E11.9 Type 2 diabetes mellitus without complications; I50.9 Heart failure, unspecified; I11.0 Hypertensive heart disease with heart failure; F17.200 Nicotine dependence, unspecified, uncomplicated; Z79.899 Other long term (current) drug therapy; Z88.0 Allergy status to penicillin; Z88.6 Allergy status to analgesic agent; Z90.49 Acquired absence of other specified parts of digestive tract

== ENCOUNTER 2019-11-02 16:53 | Emergency (ER) | payer OTHER ==
[2019-11-02 17:35] LABS: BASO # 0.1 10*3/uL (0.0-0.1); BASO % 0.6 % (0.0-1.0); EOS # 0.3 10*3/uL (0.0-0.4); EOS % 4.3 % (1.0-4.0); HEMOGLOBIN 15.4 g/dl (14.0-18.0); LYMPH # 1.8 10*3/uL (1.3-4.4); LYMPH % 22.8 % (27.0-41.0); MEAN CELL VOLUME 95.8 fl (80.0-94.0); MEAN CORPUSCULAR HGB 32.1 pg (27.0-31.0); MEAN CORPUSCULAR HGB CONC 33.5 g/dl (33.0-37.0); MEAN PLATELET VOLUME 9.8 fl (9.6-12.3); MONO # 0.7 10*3/uL (0.1-1.0); NEUT % 62.8 % (47.0-73.0); PLATELET COUNT AUTOMATED 232 10*3/uL (130-400); RED CELL DISTRI WIDTH 12.9 % (0-14.5)
[2019-11-02 17:58] LABS: ALBUMIN 3.3 gm/dl (3.1-4.5); ALKALINE PHOSPHATASE 100 U/L (45-117); BUN 16 mg/dl (7-24); CHLORIDE 108 mmol/L (98-107); CREATININE 1.32 mg/dL (0.70-1.30); POTASSIUM 4.3 mmol/L (3.5-5.1); SGOT/AST 29 IU/L (3-35); SGPT/ALT 46 U/L (12-78); SODIUM 140 mmol/L (136-145); TOTAL PROTEIN 7.2 gm/dL (6.4-8.2)
[2019-11-02] MEDS ORDERED: ZYRTEC10 M3 PO (18:01)
== END 2019-11-02 18:02 | disposition home or self-care (01) ==
LOC: ED 16:53
PROVIDERS: Nurse Practitioner Family
DX: B34.9 Viral infection, unspecified (principal); K21.9 Gastro-esophageal reflux disease without esophagitis; E11.9 Type 2 diabetes mellitus without complications; I10 Essential (primary) hypertension; J44.9 Chronic obstructive pulmonary disease, unspecified; Z88.0 Allergy status to penicillin; Z88.6 Allergy status to analgesic agent; Z79.899 Other long term (current) drug therapy; Z79.4 Long term (current) use of insulin; Z90.49 Acquired absence of other specified parts of digestive tract; Z87.891 Personal history of nicotine dependence

== ENCOUNTER 2019-11-05 10:49 | Emergency (ER) | payer OTHER ==
[~2019-11-05] VITALS: Ht 187.9 cm; Wt 116.6 kg
[~2019-11-05 10:49] MED LIST changes: +ZYRTEC10 M3 PO
[2019-11-05 11:58] LABS: BASO % 0.4 % (0.0-1.0); EOS # 0.3 10*3/uL (0.0-0.4); EOS % 2.8 % (1.0-4.0); HEMATOCRIT 50.9 % (42.0-52.0); HEMOGLOBIN 16.8 g/dl (14.0-18.0); LYMPH # 1.7 10*3/uL (1.3-4.4); LYMPH % 18.7 % (27.0-41.0); MEAN CELL VOLUME 94.3 fl (80.0-94.0); MEAN CORPUSCULAR HGB 31.1 pg (27.0-31.0); MEAN PLATELET VOLUME 10.2 fl (9.6-12.3); MONO # 0.7 10*3/uL (0.1-1.0); MONO % 8.1 % (3.0-9.0); NEUT # 6.2 10*3/uL (2.3-7.9); NEUT % 69.7 % (47.0-73.0); PLATELET COUNT AUTOMATED 236 10*3/uL (130-400); RED CELL DISTRI WIDTH 13.2 % (0-14.5); WHITE BLOOD COUNT 8.9 10*3/uL (4.8-10.8)
[2019-11-05 12:55] LABS: BACTERIA TRACE; BILIRUBIN NEGATIVE (NEGATIVE); BLOOD NEGATIVE (NEGATIVE); CLARITY SL CLOUDY (CLEAR); COLOR YELLOW (YELLOW); EPITHELIAL CELLS 0-2; GLUCOSE 3+ (NEGATIVE); KETONE 2+ (NEGATIVE); LEUKO ESTERASE NEGATIVE (NEGATIVE); NITRITE NEGATIVE (NEGATIVE); RBC 0-2 rbc/hpf (0-2); SPECIFIC GRAVITY 1.015 (1.005-1.030); UROBILINOGEN 0.2 E.U./dl (0.2-1.0); WBC 0-2 wbc/hpf (0-5)
[2019-11-05 13:00] LABS: ALBUMIN 3.5 gm/dl (3.1-4.5); ALKALINE PHOSPHATASE 99 U/L (45-117); BUN 27 mg/dl (7-24); CHLORIDE 105 mmol/L (98-107); CREATININE 1.25 mg/dL (0.70-1.30); LIPASE 84 U/L (73-393); POTASSIUM 4.4 mmol/L (3.5-5.1); SGOT/AST 17 IU/L (3-35); SGPT/ALT 32 U/L (12-78); SODIUM 138 mmol/L (136-145); TOTAL PROTEIN 7.3 gm/dL (6.4-8.2)
[2019-11-05] MEDS ORDERED: ZOFRAN4 MG PO (15:13)
== END 2019-11-05 15:15 | disposition home or self-care (01) ==
LOC: ED 10:49
PROVIDERS: Nurse Practitioner Family
DX: R11.0 Nausea (principal); R10.9 Unspecified abdominal pain; E11.9 Type 2 diabetes mellitus without complications; Z79.899 Other long term (current) drug therapy; Z79.4 Long term (current) use of insulin

== ENCOUNTER 2020-02-03 16:09 | Emergency (ER) | payer BC ==
[~2020-02-03] VITALS: Wt 141.1 kg
[2020-02-03 16:42] LABS: BASO % 0.4 % (0.0-1.0); EOS # 0.3 10*3/uL (0.0-0.4); EOS % 4.3 % (1.0-4.0); HEMATOCRIT 45.8 % (42.0-52.0); LYMPH # 1.5 10*3/uL (1.3-4.4); LYMPH % 20.8 % (27.0-41.0); MEAN CORPUSCULAR HGB CONC 32.3 g/dl (33.0-37.0); MEAN PLATELET VOLUME 9.4 fl (9.6-12.3); MONO # 0.7 10*3/uL (0.1-1.0); MONO % 9.7 % (3.0-9.0); NEUT # 4.7 10*3/uL (2.3-7.9); NEUT % 64.5 % (47.0-73.0); PLATELET COUNT AUTOMATED 224 10*3/uL (130-400); RED BLOOD COUNT 4.77 10*6/uL (4.50-5.90); RED CELL DISTRI WIDTH 13.3 % (0-14.5); WHITE BLOOD COUNT 7.3 10*3/uL (4.8-10.8)
[2020-02-03 16:56] LABS: ACT PARTIAL THROMBO TIME 34.2 SECONDS (20.0-32.1)
[2020-02-03 16:58] LABS: ALBUMIN 3.4 gm/dl (3.1-4.5); ALKALINE PHOSPHATASE 99 U/L (45-117); BUN 19 mg/dl (7-24); CHLORIDE 105 mmol/L (98-107); CREATININE 1.04 mg/dL (0.70-1.30); POTASSIUM 4.7 mmol/L (3.5-5.1); SGOT/AST 20 IU/L (3-35); SGPT/ALT 24 U/L (12-78); SODIUM 138 mmol/L (136-145); TOTAL PROTEIN 7.5 gm/dL (6.4-8.2)
[2020-02-03 17:00] LABS: TROPONIN I < 0.015 ng/ml (<0.045)
== END 2020-02-03 19:12 | disposition home or self-care (01) ==
LOC: ED 16:09
PROVIDERS: Emergency Medicine
DX: R51 Headache (principal); R53.83 Other fatigue; R79.89 Other specified abnormal findings of blood chemistry; R79.1 Abnormal coagulation profile; J44.9 Chronic obstructive pulmonary disease, unspecified; E11.9 Type 2 diabetes mellitus without complications; K21.9 Gastro-esophageal reflux disease without esophagitis; I10 Essential (primary) hypertension; Z88.0 Allergy status to penicillin; Z88.6 Allergy status to analgesic agent; Z79.899 Other long term (current) drug therapy

== ENCOUNTER 2020-02-20 12:59 | Emergency (ER) | payer BC ==
[~2020-02-20] VITALS: Ht 190.5 cm; Wt 111.1 kg
[2020-02-20 13:41] LABS: BASO % 0.4 % (0.0-1.0); EOS # 0.3 10*3/uL (0.0-0.4); EOS % 3.9 % (1.0-4.0); HEMATOCRIT 44.9 % (42.0-52.0); LYMPH # 1.7 10*3/uL (1.3-4.4); LYMPH % 21.5 % (27.0-41.0); MEAN CELL VOLUME 96.1 fl (80.0-94.0); MEAN CORPUSCULAR HGB CONC 32.3 g/dl (33.0-37.0); MEAN PLATELET VOLUME 9.5 fl (9.6-12.3); MONO # 0.6 10*3/uL (0.1-1.0); MONO % 8.1 % (3.0-9.0); NEUT # 5.1 10*3/uL (2.3-7.9); NEUT % 65.7 % (47.0-73.0); PLATELET COUNT AUTOMATED 216 10*3/uL (130-400); RED BLOOD COUNT 4.67 10*6/uL (4.50-5.90); RED CELL DISTRI WIDTH 13.4 % (0-14.5); WHITE BLOOD COUNT 7.7 10*3/uL (4.8-10.8)
[2020-02-20 13:52] LABS: ACT PARTIAL THROMBO TIME 33.6 SECONDS (20.0-32.1); INTERNATIONAL NORM RATIO 3.9 (2.0-3.5)
[2020-02-20 13:59] LABS: ALBUMIN 3.5 gm/dl (3.1-4.5); ALKALINE PHOSPHATASE 101 U/L (45-117); BUN 14 mg/dl (7-24); CHLORIDE 105 mmol/L (98-107); CREATININE 1.11 mg/dL (0.70-1.30); POTASSIUM 3.9 mmol/L (3.5-5.1); SGOT/AST 14 IU/L (3-35); SGPT/ALT 24 U/L (12-78); SODIUM 139 mmol/L (136-145); TOTAL PROTEIN 7.6 gm/dL (6.4-8.2); TROPONIN I < 0.015 ng/ml (<0.045)
== END 2020-02-20 17:23 | disposition home or self-care (01) ==
LOC: ED 12:59
PROVIDERS: Emergency Medicine
DX: R07.9 Chest pain, unspecified (principal); R06.02 Shortness of breath; R50.9 Fever, unspecified; K21.9 Gastro-esophageal reflux disease without esophagitis; J44.9 Chronic obstructive pulmonary disease, unspecified; E11.9 Type 2 diabetes mellitus without complications; I10 Essential (primary) hypertension; F17.200 Nicotine dependence, unspecified, uncomplicated; Z88.0 Allergy status to penicillin; Z88.6 Allergy status to analgesic agent; Z79.899 Other long term (current) drug therapy

== ENCOUNTER 2020-03-29 09:14 | Emergency (ER) | payer BC ==
[2020-03-29] MEDS ORDERED: ULTRAM50 MG PO (13:17)
[2020-03-29] MEDS ORDERED: MEDROL DOSEPAK4 MG PO (13:17)
[2020-03-29] MEDS ORDERED: ORPHENADRINE C100 M1 PO (13:17)
--- NOTE | 2020-03-29 13:54 | NUR ---
[employer] RECEIVED SCRIPT FOR FWW FROM [facility]. [employer] SPOKE WITH THE PATIENT AT BEDSIDE. [employer] EXPLAINED THE SCRIPT WOULD BE SENT TO [facility]. THEY WOULD THEN SUBMIT TO INSURANCE FOR COVERAGE. [employer] EXPLAIN THE POSSIBILITY OF A CO PAY. PATIENT UNDERSTOOD. [employer] ALSO EXPLAINED THAT IT MAY NO BE ABLE TO BE DELIVERED TO DAY ANY MIGHT BE TOMORROW IF INSURANCE APPROVED. PATIENT UNDERSTOOD. PATIENT STATED HE LIVES AT HOME WITH HIS ELDERLY MOTHER. PATIENT STATED THERE IS ONE STEP INTO THE HOME FROM THE OUTSIDE, BUT HIS BEDROOM IS LOCATED ON THE 2ND FLOOR OF THE HOME. [employer] EXPLAINED THAT IF DISCHARGED FROM THE ED THEY COULD ASSIST HIM TO THE CAR FROM HERE. IF HE WAS UNABLE TO ENTER HIS HOME HE COULD CALL HIS LOCAL FIRE DEPT FOR A LIFT ASSIST INTO THE HOME. PATIENT UNDERSTOOD. [employer] FAXED THE FWW SCRIPT, ER REPORT, DEMOGRAPHICS TO [facility].
== END 2020-03-29 13:31 | disposition home or self-care (01) ==
LOC: ED 09:14
DX: M54.5 Low back pain (principal); G89.29 Other chronic pain; Z79.899 Other long term (current) drug therapy; Z88.5 Allergy status to narcotic agent; Z88.0 Allergy status to penicillin

== ENCOUNTER → 2020-04-26 | Outpatient (CLI) | payer BC ==
[~2020-04-26] MED LIST changes: +ORPHENADRINE C100 M1 PO; +ULTRAM50 MG PO
== END | disposition home or self-care (01) ==
LOC: US 03-27 11:30 → MRI 09:00 → US 09:00
PROVIDERS: ATTEND Internal Medicine
DX: M47.816 Spondylosis without myelopathy or radiculopathy, lumbar region (principal); M41.86 Other forms of scoliosis, lumbar region; M48.061 Spinal stenosis, lumbar region without neurogenic claudication; M54.5 Low back pain; I73.9 Peripheral vascular disease, unspecified; E11.9 Type 2 diabetes mellitus without complications; I10 Essential (primary) hypertension

== ENCOUNTER 2020-05-14 09:04 | Emergency (ER) | payer BC ==
[~2020-05-14] VITALS: Ht 187.9 cm; Wt 147.9 kg
[2020-05-14] MEDS ORDERED: CLARITIN10 MG PO (09:43)
[2020-05-14] MEDS ORDERED: AVPAK AZITHROM250 MG PO (09:43)
[2020-05-14] MEDS ORDERED: FLONASE ALLERG9.9 ML NAS (09:43)
== END 2020-05-14 09:51 | disposition home or self-care (01) ==
LOC: ED 09:04
DX: J01.90 Acute sinusitis, unspecified (principal); K21.9 Gastro-esophageal reflux disease without esophagitis; E11.9 Type 2 diabetes mellitus without complications; I10 Essential (primary) hypertension; J44.9 Chronic obstructive pulmonary disease, unspecified; Z88.0 Allergy status to penicillin; Z88.5 Allergy status to narcotic agent; Z79.899 Other long term (current) drug therapy; Z90.49 Acquired absence of other specified parts of digestive tract

== ENCOUNTER 2020-06-23 13:46 | Emergency (ER) | payer BC ==
[~2020-06-23 13:46] MED LIST changes: +AVPAK AZITHROM250 MG PO
[2020-06-23] MEDS ORDERED: ZYRTEC10 M3 PO (15:08)
[2020-06-23] MEDS ORDERED: FLONASE ALLERG9.9 ML NAS (15:08)
[2020-06-23] MEDS ORDERED: ZITHROMAX250 MG PO (15:08)
== END 2020-06-23 15:18 | disposition home or self-care (01) ==
LOC: ED 13:46
DX: J32.9 Chronic sinusitis, unspecified (principal); Z88.0 Allergy status to penicillin; Z88.5 Allergy status to narcotic agent; Z79.899 Other long term (current) drug therapy; Z79.4 Long term (current) use of insulin; Z79.2 Long term (current) use of antibiotics

== ENCOUNTER 2020-07-31 10:50 | Emergency (ER) | payer BC ==
[~2020-07-31] VITALS: Ht 187.9 cm; Wt 136.1 kg
[~2020-07-31 10:50] MED LIST changes: +ZITHROMAX250 MG PO
== END 2020-07-31 13:34 | disposition home or self-care (01) ==
LOC: ED 10:50
DX: R06.02 Shortness of breath (principal); Z20.828 Contact with and (suspected) exposure to other viral communicable diseases; M79.10 Myalgia, unspecified site; R51.9 Headache, unspecified; R09.81 Nasal congestion; Z88.0 Allergy status to penicillin; Z88.6 Allergy status to analgesic agent; Z79.899 Other long term (current) drug therapy; Z87.891 Personal history of nicotine dependence

== ENCOUNTER → 2021-07-04 | Outpatient (CLI) | payer BC | END | disposition home or self-care (01) | LOC: COVID19 15:59 | PROVIDERS: ATTEND Internal Medicine | DX: U07.1 COVID-19 (principal) ==

== ENCOUNTER → 2021-12-12 | Outpatient (CLI) | payer MEDICAID | END | disposition home or self-care (01) | LOC: RAD 10:30 | PROVIDERS: ATTEND Internal Medicine | DX: M25.511 Pain in right shoulder (principal) ==

== ENCOUNTER 2022-12-01 12:02 | Emergency (ER) | payer BC ==
[~2022-12-01] VITALS: Ht 187.9 cm; Wt 145.1 kg
[2022-12-01 14:17] LABS: BASO % 0.6 % (0.0-1.0); EOS # 0.3 10*3/uL (0.0-0.4); EOS % 4.9 % (1.0-4.0); HEMATOCRIT 42.9 % (42.0-52.0); LYMPH % 18.6 % (27.0-41.0); MEAN CELL VOLUME 101.4 fl (80.0-94.0); MEAN CORPUSCULAR HGB 31.9 pg (27.0-31.0); MEAN CORPUSCULAR HGB CONC 31.5 g/dl (33.0-37.0); MEAN PLATELET VOLUME 9.6 fl (9.6-12.3); MONO # 0.5 10*3/uL (0.1-1.0); MONO % 8.6 % (3.0-9.0); NEUT # 3.6 10*3/uL (2.3-7.9); NEUT % 66.9 % (47.0-73.0); PLATELET COUNT AUTOMATED 181 10*3/uL (130-400); RED BLOOD COUNT 4.23 10*6/uL (4.50-5.90); RED CELL DISTRI WIDTH 13.3 % (0-14.5); WHITE BLOOD COUNT 5.3 10*3/uL (4.8-10.8)
[2022-12-01 14:40] LABS: POTASSIUM 5.4 mmol/L (3.4-5.1); TOTAL PROTEIN 6.6 gm/dL (6.0-8.0)
[2022-12-01] MEDS ORDERED: KENALOG 0.1% OI15 GM T (15:17)
[2022-12-01] MEDS ORDERED: CEPHALEXIN500 M1 PO (15:17)
== END 2022-12-01 15:40 | disposition home or self-care (01) ==
LOC: ED 12:02
PROVIDERS: Nurse Practitioner Family
DX: L23.7 Allergic contact dermatitis due to plants, except food (principal); L03.116 Cellulitis of left lower limb; L03.115 Cellulitis of right lower limb; J44.9 Chronic obstructive pulmonary disease, unspecified; K21.9 Gastro-esophageal reflux disease without esophagitis; E11.9 Type 2 diabetes mellitus without complications; I10 Essential (primary) hypertension; F32.A Depression, unspecified; Z88.0 Allergy status to penicillin; Z88.6 Allergy status to analgesic agent; Z91.040 Latex allergy status; Z90.89 Acquired absence of other organs; Z90.49 Acquired absence of other specified parts of digestive tract; Z98.890 Other specified postprocedural states; F17.200 Nicotine dependence, unspecified, uncomplicated

== ENCOUNTER → 2024-01-09 | Outpatient (CLI) | payer MEDICARE ==
[~2024-01-09] MED LIST changes: +CEPHALEXIN500 M1 PO; -COZAAR50 M1 PO; +HYDROXYZINE HCL25 MG PO; +INSULIN AS100 UNIT/4 SQ; +KENALOG 0.1% OI15 GM T; +LIPITOR10 MG PO; +MOUNJARO10 MG/0.1 SQ; +ROPINIROLE HYDRO1 MG PO; +Regadenoson 0.4 MG/5 ML SYR IV ONE; +TRAMADOL HCL50 MG PO; +Technetium Tc 99M Tetrofosmi 0.23 MG KIT IJ SCH; +XARELTO15 M1 PO
== END | disposition home or self-care (01) ==
LOC: CARD 00:05
PROVIDERS: ATTEND Internal Medicine
DX: R07.9 Chest pain, unspecified (principal)

== ENCOUNTER → 2024-01-20 | Outpatient (CLI) | payer MEDICARE ==
[~2024-01-20] MED LIST changes: -Regadenoson 0.4 MG/5 ML SYR IV ONE; -Technetium Tc 99M Tetrofosmi 0.23 MG KIT IJ SCH
== END ==
LOC: US 01-09 09:00
PROVIDERS: ATTEND Internal Medicine
DX: K76.0 Fatty (change of) liver, not elsewhere classified (principal); R10.84 Generalized abdominal pain

== ENCOUNTER 2024-05-23 21:30 | Inpatient (IN) | payer OTHER ==
[~2024-05-23] VITALS: Ht 187.9 cm; Wt 119.3 kg
[2024-05-23 21:46] VITALS: BP 125/72
[2024-05-23] MEDS ORDERED: OZEMPIC1 MG/0.71 SQ (21:46)
[2024-05-23 23:05] LABS: BILIRUBIN Negative (Negative); BLOOD Negative (Negative); CLARITY Clear (Clear); COLOR Yellow (Yellow); GLUCOSE 3+ (Negative); KETONE Trace (Negative); LEUKO ESTERASE Negative (Negative); NITRITE Negative (Negative); SPECIFIC GRAVITY >= 1.030 (1.001-1.030)
[2024-05-23] MEDS ORDERED: Vancomycin Hydrochloride 250 ML IV ONE (23:05)
[2024-05-23] MEDS ORDERED: Meropenem 1 GM in SODIUM CHLORIDE 0.9% 100 ML IV ONE (23:05)
[2024-05-23 23:08] LABS: BASO % 0.4 % (0.0-1.0); EOS # 0.2 10*3/uL (0.0-0.4); EOS % 1.7 % (1.0-4.0); HEMATOCRIT 39.2 % (42.0-52.0); LYMPH # 1.2 10*3/uL (1.3-4.4); LYMPH % 12.3 % (27.0-41.0); MEAN CELL VOLUME 94.7 fl (80.0-94.0); MEAN CORPUSCULAR HGB 32.1 pg (27.0-31.0); MEAN CORPUSCULAR HGB CONC 33.9 g/dl (33.0-37.0); MEAN PLATELET VOLUME 9.7 fl (9.6-12.3); MONO # 0.9 10*3/uL (0.1-1.0); NEUT # 7.7 10*3/uL (2.3-7.9); NEUT % 76.1 % (47.0-73.0); PLATELET COUNT AUTOMATED 216 10*3/uL (130-400); RED BLOOD COUNT 4.14 10*6/uL (4.50-5.90); RED CELL DISTRI WIDTH 12.1 % (0-14.5)
[2024-05-23 23:34] LABS: POTASSIUM 4.8 mmol/L (3.4-5.1)
[2024-05-23 23:37] LABS: RBC 0-2 rbc/hpf (0-2); WBC 0-2 wbc/hpf (0-5)
[2024-05-24] VITALS (9 sets, daily range): BP systolic 122–166; BP diastolic 56–74
[2024-05-24] MEDS ORDERED: INSULIN LISPRO 1 UNIT/0.01 ML IV ONE (00:10)
[2024-05-24] MEDS ORDERED: SODIUM CHLORIDE 0.9% 1,000 ML IV ONE ×2 (00:10→15:40)
[2024-05-24] MEDS ORDERED: DEXTROSE 10 % IN WATER 250 ML IV PRN (08:50)
[2024-05-24] MEDS ORDERED: BUDESONIDE 0.5 MG AMP NEB SCH (09:15)
[2024-05-24] MEDS ORDERED: Albuterol Sulfate 2.5 MG/3 ML VIAL NEB SCH (09:15)
[2024-05-24] MEDS ORDERED: GADOTERATE MEGLUMINE 10 MMOL/20 ML VIAL IV ONE (09:45)
[2024-05-24] MEDS ORDERED: GADOTERATE MEGLUMINE 5 MMOL/10 ML VIAL IV ONE (09:45)
[2024-05-24] MEDS ORDERED: ATORVASTATIN CALCIUM 10 MG TAB PO SCH (10:00)
[2024-05-24] MEDS ORDERED: LORATADINE 10 MG TAB PO SCH (10:00)
[2024-05-24] MEDS ORDERED: Meropenem 1 GM in SODIUM CHLORIDE 0.9% 100 ML IV SCH (10:00)
[2024-05-24] MEDS ORDERED: GABAPENTIN 300 MG CAP PO SCH (10:00)
[2024-05-24] MEDS ORDERED: Losartan Potassium 25 MG TAB PO SCH (10:00)
[2024-05-24] MEDS ORDERED: Budesonide/Formoterol Fumarate 80/4.5 inhaler INH SCH (10:00)
[2024-05-24] MEDS ORDERED: ATENOLOL 25 MG TAB PO SCH (10:00)
[2024-05-24] MEDS ORDERED: Meropenem 1 GM VIAL IV ONE (10:41)
[2024-05-24] MEDS ORDERED: SODIUM CHLORIDE 0.9% 50 ML BAG IV ONE (10:41)
[2024-05-24] MEDS ORDERED: VANCOMYCIN/WATER FOR INJ (PEG) 300 ML IV SCH (11:00)
[2024-05-24] MEDS ORDERED: INSULIN REGULAR, HUMAN 1 UNIT/0.01 ML SC SCH (11:30)
[2024-05-24] MEDS ORDERED: PROPOFOL 200 MG/20 ML VIAL IV ONE (14:07)
[2024-05-24] MEDS ORDERED: fentaNYL CITRATE 100 MCG/2 ML VIAL IV ONE (14:07)
[2024-05-24] MEDS ORDERED: Ketamine Hydrochloride 500 MG/10 ML VIAL IV ONE (14:07)
[2024-05-24] MEDS ORDERED: Ondansetron Hydrochloride 4 MG/2 ML VIAL IV ONE (14:07)
[2024-05-24] MEDS ORDERED: Midazolam Hydrochloride 2 MG/2 ML VIAL IV ONE (14:07)
[2024-05-24] MEDS ORDERED: Lactated Ringer's Solution 1,000 ML IV ONE (15:35)
[2024-05-24] MEDS ORDERED: SODIUM CHLORIDE 0.9% 1,000 ML IV SCH (15:40)
[2024-05-24] MEDS ORDERED: Vancomycin Hydrochloride 1,000 MG VIAL ONE (15:46)
[2024-05-24] MEDS ORDERED: Benzocaine/Menthol 1 LOZ LOZENGE PO PRN (20:15)
[2024-05-24] MEDS ORDERED: Ropinirole Hydrochloride 1 MG TAB PO SCH (22:00)
[2024-05-24] MEDS ORDERED: RIVAROXABAN 15 MG TAB PO SCH (22:00)
[2024-05-24] MEDS ORDERED: HYDROmorphONE Hydrochloride 1 MG/ML SYR IV PRN (22:15)
[2024-05-25] VITALS: BP 154/64
[2024-05-25 08:00] VITALS: BP 138/69
[2024-05-25] MEDS ORDERED: Albuterol Sulfate 2.5 MG/3 ML VIAL NEB PRN (08:05)
[2024-05-25 12:00] VITALS: BP 137/58
[2024-05-25 16:00] VITALS: BP 149/73
[2024-05-25 20:00] VITALS: BP 147/72
[2024-05-26] VITALS: BP 99/55
[2024-05-26 05:43] LABS: ALKALINE PHOSPHATASE 176 U/L (46-116); BUN 10 mg/dl (9-23); CHLORIDE 101 mmol/L (98-107); POTASSIUM 4.7 mmol/L (3.4-5.1); SGPT/ALT 45 U/L (5-49)
[2024-05-26 06:15] LABS: BASO # 0.1 10*3/uL (0.0-0.1); BASO % 0.6 % (0.0-1.0); EOS # 0.4 10*3/uL (0.0-0.4); HEMATOCRIT 43.7 % (42.0-52.0); LYMPH # 2.1 10*3/uL (1.3-4.4); LYMPH % 25.7 % (27.0-41.0); MEAN CELL VOLUME 101.9 fl (80.0-94.0); MEAN CORPUSCULAR HGB 31.9 pg (27.0-31.0); MEAN CORPUSCULAR HGB CONC 31.4 g/dl (33.0-37.0); MEAN PLATELET VOLUME 9.4 fl (9.6-12.3); MONO # 0.8 10*3/uL (0.1-1.0); MONO % 10.5 % (3.0-9.0); NEUT # 4.6 10*3/uL (2.3-7.9); NEUT % 57.7 % (47.0-73.0); PLATELET COUNT AUTOMATED 196 10*3/uL (130-400); RED BLOOD COUNT 4.29 10*6/uL (4.50-5.90); RED CELL DISTRI WIDTH 12.4 % (0-14.5)
[2024-05-26 08:00] VITALS: BP 114/59
[2024-05-26 14:09] LABS: ACID FAST SPEC PROCESSING Tissue Grinding (.)
[2024-05-26 16:00] VITALS: BP 107/59
[2024-05-26 20:00] VITALS: BP 118/56
[2024-05-27] VITALS: BP 120/47
[2024-05-27 08:00] VITALS: BP 117/59
[2024-05-27] MEDS ORDERED: FREESTYLE LIBR1 EAC5 MC (08:44)
[2024-05-27] MEDS ORDERED: FREESTYLE LIBR1 EAC4 MC (08:44)
[2024-05-27 12:00] VITALS: BP 122/59
[2024-05-27 16:00] VITALS: BP 122/66
[2024-05-27] MEDS ORDERED: Meropenem 50 ML IV SCH (18:00)
[2024-05-31 20:07] LABS: ANAEROBE RESULT 1 Bacteroides fragilis (.)
[2024-05-31 20:07] LABS: ANAEROBE RESULT 1 Bacteroides fragilis (.)
[2024-05-31 20:07] LABS: ANAEROBE RESULT 1 Bacteroides fragilis (.)
== END 2024-05-27 19:23 | disposition home health service (06) | DRG 629 ==
LOC: ED 21:30 → 4E 05-24 01:18 → EDHOLD 05-24 01:18 → 4E 05-24 15:15
PROVIDERS: Emergency Medicine; Podiatrist; ADMIT Internal Medicine; ATTEND Internal Medicine
PROC: 0QBQ0ZX Excision of Right Toe Phalanx, Open Approach, Diagnostic (ICD-10-PCS; principal; 2024-05-24)
PROC: 0JQQ0ZZ Repair Right Foot Subcutaneous Tissue and Fascia, Open Approach (ICD-10-PCS; 2024-05-24)
PROC: 0QBQ0ZX Excision of Right Toe Phalanx, Open Approach, Diagnostic (ICD-10-PCS; 2024-05-24)
PROC: 02HV33Z Insertion of Infusion Device into Superior Vena Cava, Percutaneous Approach (ICD-10-PCS; 2024-05-27)
PROC: B548ZZA Ultrasonography of Superior Vena Cava, Guidance (ICD-10-PCS; 2024-05-27)
DX: E11.69 Type 2 diabetes mellitus with other specified complication (principal); M86.8X7 Other osteomyelitis, ankle and foot; L03.031 Cellulitis of right toe; N17.0 Acute kidney failure with tubular necrosis; E11.621 Type 2 diabetes mellitus with foot ulcer; L97.519 Non-pressure chronic ulcer of other part of right foot with unspecified severity; E11.65 Type 2 diabetes mellitus with hyperglycemia; F41.0 Panic disorder [episodic paroxysmal anxiety]; F41.1 Generalized anxiety disorder; B96.4 Proteus (mirabilis) (morganii) as the cause of diseases classified elsewhere; J44.9 Chronic obstructive pulmonary disease, unspecified; F32.A Depression, unspecified; K21.9 Gastro-esophageal reflux disease without esophagitis; G89.29 Other chronic pain; M54.9 Dorsalgia, unspecified; K59.00 Constipation, unspecified; E11.42 Type 2 diabetes mellitus with diabetic polyneuropathy; B95.2 Enterococcus as the cause of diseases classified elsewhere; Z91.148 Patient's other noncompliance with medication regimen for other reason; I10 Essential (primary) hypertension; Z91.040 Latex allergy status; Z88.0 Allergy status to penicillin; Z88.8 Allergy status to other drugs, medicaments and biological substances; Z91.09 Other allergy status, other than to drugs and biological substances; Z79.899 Other long term (current) drug therapy; Z79.01 Long term (current) use of anticoagulants; Z79.2 Long term (current) use of antibiotics; Z86.16 Personal history of COVID-19; Z90.49 Acquired absence of other specified parts of digestive tract; Z86.711 Personal history of pulmonary embolism; Z87.891 Personal history of nicotine dependence; Z83.3 Family history of diabetes mellitus; Z82.49 Family history of ischemic heart disease and other diseases of the circulatory system

== ENCOUNTER 2024-11-30 21:27 | Emergency (ER) | payer OTHER ==
[~2024-11-30] VITALS: Ht 187.9 cm; Wt 120.2 kg
[~2024-11-30 21:27] MED LIST changes: +FREESTYLE LIBR1 EAC4 MC; +FREESTYLE LIBR1 EAC5 MC; +OZEMPIC1 MG/0.71 SQ
[2024-11-30] MEDS ORDERED: Acetaminophen/Hydrocodone 5 MG/325 MG TABLET PO ONE (21:55)
[2024-11-30] MEDS ORDERED: Ondansetron Hydrochloride 4 MG TAB SL ONE (21:55)
[2024-11-30] MEDS ORDERED: SILVER SULFADIAZINE 25 GM TUBE T ONE (21:55)
[2024-11-30] MEDS ORDERED: SILVADENE20 GM T (23:37)
== END 2024-11-30 23:43 | disposition home or self-care (01) ==
LOC: ED 21:27
DX: T20.17XA Burn of first degree of neck, initial encounter (principal); F17.200 Nicotine dependence, unspecified, uncomplicated; Z79.899 Other long term (current) drug therapy; Z88.0 Allergy status to penicillin; Z88.6 Allergy status to analgesic agent; Z91.040 Latex allergy status; Z90.49 Acquired absence of other specified parts of digestive tract; Z90.89 Acquired absence of other organs; X32.XXXA Exposure to sunlight, initial encounter; Y93.89 Activity, other specified; Y92.89 Other specified places as the place of occurrence of the external cause; Y99.8 Other external cause status